=== PATIENT | female | born 1940 | race Caucasian/White ===

== ENCOUNTER 2021-03-25 17:00 | Inpatient (IN) | payer MEDICARE, BC ==
[2021-03-25] MEDS ORDERED: Sodium Chloride 0.9% 10 ML Syringe FLUSH PRN (17:12)
[2021-03-25] MEDS ORDERED: Acetaminophen 325 MG Tab PO PRN (17:12)
[2021-03-25] MEDS ORDERED: Sodium Chloride 0.9% 1,000 ML IV SCH (17:15)
[2021-03-25] MEDS ORDERED: Sodium Chloride 0.9% 1,000 ML ONE (18:13)
[2021-03-25] MEDS ORDERED: Albuterol 0.083% 2.5 MG/3 ML Neb Soln NEB PRN (18:21)
[2021-03-25] MEDS: cefTRIAXone 1 GM Vial IVPUSH SCH (19:25)
[2021-03-25] MEDS: Sodium Chloride 0.9% 1,000 ML IV SCH (19:27)
[2021-03-25] MEDS: Azithromycin 500 MG in Sodium Chloride 0.9% 250 ML IV SCH (19:34)
[2021-03-25] MEDS: guaiFENesin 600 MG Tab.ER PO SCH (20:35)
[2021-03-26] MEDS: Sodium Chloride 0.9% 1,000 ML IV SCH ×2 (04:28→14:58)
--- NOTE | 2021-03-26 08:47 | PCM.PN ---
- General Info Date of Service: 03/26/21 Subjective Update: Still somewhat weak with tachycardia sitting up in bed however overall she states she does feel better, poor sleep last night Functional Status: Reports: Tolerating Diet, Urinating. Denies: Ambulating, Incentive Spirometry - Review of Systems General: Reports: Weakness, Malaise, Chills. Denies: Fever HEENT: Reports: No Symptoms Pulmonary: Reports: Cough. Denies: Shortness of Breath, Sputum, Wheezing Cardiovascular: Denies: Chest Pain, Dyspnea on Exertion Gastrointestinal: Reports: Diarrhea Genitourinary: Reports: No Symptoms Musculoskeletal: Reports: No Symptoms Skin: Denies: Dryness Neurological: Reports: Weakness. Denies: Confusion Psychiatric: Denies: Confusion - Patient Data Vitals - Most Recent: Last Vital Signs Temp 98.1 F 03/26/21 06:39 Pulse 93 03/26/21 06:39 Resp 18 03/26/21 06:39 BP 114/60 03/26/21 06:39 Pulse Ox 93 L 03/26/21 06:39 Weight - Most Recent: 184 lb 4 oz I&O - Last 24 Hours: Intake & Output 03/25/21 03/26/21 03/26/21 22:59 06:59 14:59 Intake Total 300 360 Output Total 200 600 Balance 100 -240 Lab Results Last 24 Hours: Laboratory Results - last 24 hr 03/25/21 03/25/21 Range/Units 17:35 17:35 Lactic Acid 1.7 (0.4-2.0) mmol/L C-Reactive Protein > 11.0 H (0.0-0.9) mg/dL Med Orders - Current: Current Medications Acetaminophen (Acetaminophen 325 Mg Tab) 650 mg PO Q4H PRN PRN Reason: Pain (Mild 1-3)/fever Albuterol (Albuterol 0.083% 2.5 Mg/3 Ml Neb Soln) 2.5 mg NEB Q6HRRT PRN PRN Reason: Shortness of Breath Ceftriaxone Sodium (Ceftriaxone 1 Gm Vial) 1 gm IVPUSH Q24H [facility] Last Admin: 03/25/21 19:25 Dose: 1 gm Documented by: Guaifenesin (Guaifenesin 600 Mg Tab.Er) 600 mg PO BID [facility] Last Admin: 03/25/21 20:35 Dose: 600 mg Documented by: Sodium Chloride (Normal Saline) 1,000 mls @ 999 mls/hr IV .BOLUS [facility] Sodium Chloride (Normal Saline) 1,000 mls @ 125 mls/hr IV ASDIRECTED [facility] Last Admin: 03/26/21 04:28 Dose: 125 mls/hr Documented by: Azithromycin 500 mg/ Sodium (Chloride) 250 mls @ 250 mls/hr IV Q24H [facility] Last Admin: 03/25/21 19:34 Dose: 250 mls/hr Documented by: Sodium Chloride (Sodium Chloride 0.9% 10 Ml Syringe) 10 ml FLUSH Q8HR PRN PRN Reason: keep vein open Discontinued Medications Sodium Chloride (Normal Saline) Confirm Administered Dose 1,000 mls @ as directed .ROUTE .ST-MED ONE Stop: 03/25/21 18:14 Last Admin: 03/25/21 18:30 Dose: Not Given Documented by: - Exam Quality Assessment: No: Supplemental Oxygen General: Alert, Oriented, Cooperative, No Acute Distress Neck: Supple Lungs: Clear to Auscultation, Normal Respiratory Effort Cardiovascular: Regular Rhythm, Tachycardia GI/Abdominal Exam: Soft, Non-Tender, No Distention (Female) Exam: Deferred Back Exam: No: CVA Tenderness (L), CVA Tenderness (R) Extremities: No Pedal Edema Peripheral Pulses: 1+: Radial (R), 2+: Radial (L) Skin: Warm Neurological: No New Focal Deficit Psy/Mental Status: Alert, Normal Affect, Normal Mood - Patient Data Lab Results Last 24 hrs: Laboratory Results - last 24 hr 03/25/21 03/25/21 Range/Units 17:35 17:35 Lactic Acid 1.7 (0.4-2.0) mmol/L C-Reactive Protein > 11.0 H (0.0-0.9) mg/dL Result Diagrams: 03/26/21 08:15 03/26/21 08:30 Sepsis Event Note - Evaluation Sepsis Screening Result: Possible Sepsis Risk - Focused Exam Vital Signs: Vital Signs Temp Pulse Resp BP Pulse Ox 03/26/21 06:39 98.1 F 93 18 114/60 93 L 03/26/21 02:51 98.0 F 95 20 118/68 95 03/25/21 22:55 97.0 F 87 20 100/60 93 L - Problem List Review Problem List Initiated/Reviewed/Updated: Yes - Plan Plan:: History Summary; Ms Salmeron is a 80yr female who was admitted in INPT status with a working dx cough, weakness, SOB with suspect of of PNA, weakness, ELDA, with a chief complaint of Cough (started ~3 weeks ago), Shortness of Breath (worse the last 3 days), and Weakness. The last three days prior to admission symptoms have w orsened, patient reports she has become rather weak. She had a telephone visit with Dr Akins at [facility] in [place] and was given a z-pack on 03/10. Her symptoms did improve for a week following this. This past week has been "terrible." She has been weak and has had a hard time walking at times. She is drinking lots and lots of water per report. She has felt dizzy and lightheaded lately, today has been "bad for this." Her appetite has not been good. She has been voiding normally, no frequency or urgency of urination. The cough comes and goes. She has been taking mucinex and this has loosened up the phlegm "icky stuff." She has only been on this for about 4 day. Shortness of breath has been more with activity than at rest. No wheezing, no chest tightness. Denies chest pain and palpitations. Denies any swelling of the legs. She does not currently have an inhaler at home. The inhaler helped when she had this in the past. She states that if she had an inhaler at home she would have used this. She has been more fatigued than normal and sleeping more than normal. No known ill contacts. Has not been anywhere for 3 weeks. She used to smoke, smoked for 30 some years. Quit smoking about 4 months ago. No history of COPD or other lung problems. [facility] findings: 03/25/2021 CXR; 'underlying lung hyperinflation concerning for underlying obstructive physiology. Wedge-shaped area of consolidation on the lateral view is felt to correspond to peripheral nodular density within the frontal view. Differential includes underlying consolidation versus spiculated-type nodule. Recommend further evaluation with CT.' Notable labs WBC, 19.9 ESR NEUTROPCT 88.0 BUN 39 (H) CREAT 1.94 EGFR 25 (L) ESR 40 (H) Lactate 1.7 CRP >11 Alb 1.95 Hospital course 03/26; on admission, blood cultures/sputum culture/UA ordered, was given azithromycin along with ceftriaxone and her white count has responded to decreased to 13,000 with great improvement in her renal indices. Overall does feel better somewhat weak, cough, no fever, did not sleep well, her pressure improved. Primary Hosp problems --Suspect Pneumonia, CAP, vs nodule --ELDA, suspect prerenal, improving with IV hydration, avoid contrast/NSAIDs at this time. --Hypotension, prerenal volume deficit, improving --Environmental allergies, montelukast, PATITO PRN --Weakness/protein malnutrition --Thrombocytosis, suspect reactive --Anemia; suspect infection etiology Chronic medical conditions Hypertension, holding a HCTA and ARB History of breast CA with right mastectomy Disposition/overall plan --Patient qualifies for ongoing inpatient stay likely bacterial component/pneumonia requiring IV ABX, with monitoring of renal indices, hydration status, VS, --Will consider chest CT after improvement in her hydration status. --DC telemetry, --Pulm Toilet --Labs in am --Add DVT prophylaxis LMWH --Reduce IV to 70 mL/h, adequate by mouth intake --Rozerum at HS
[2021-03-26] MEDS: guaiFENesin 600 MG Tab.ER PO SCH ×2 (08:52→20:11)
[2021-03-26 09:12] LABS: ANION GAP 15.8 mmol/L (5-15)
[2021-03-26] MEDS ORDERED: Albuterol 8 GM Inhaler INH PRN (10:50)
[2021-03-26] MEDS: Enoxaparin 40 MG/0.4 ML Syringe SUBCUT SCH (11:29)
[2021-03-26] MEDS: cefTRIAXone 1 GM Vial IVPUSH SCH (18:03)
[2021-03-26] MEDS: Azithromycin 500 MG in Sodium Chloride 0.9% 250 ML IV SCH (18:04)
[2021-03-26] MEDS ORDERED: Montelukast 10 MG Tab PO SCH (21:00)
[2021-03-27] MEDS: Sodium Chloride 0.9% 1,000 ML IV SCH (06:37)
[2021-03-27 08:47] LABS: ANION GAP 14.4 mmol/L (5-15); CHLORIDE,CL 102 mmol/L (98-107); SODIUM,NA 135 mmol/L (136-145)
[2021-03-27] MEDS: guaiFENesin 600 MG Tab.ER PO SCH (09:40)
[2021-03-27] MEDS: Enoxaparin 40 MG/0.4 ML Syringe SUBCUT SCH ×2 (09:40→10:01)
--- NOTE | 2021-03-27 10:50 | PCM.DCSUM1 ---
<Isela-Delmi Vickers - Last Filed: 03/27/21 10:50> Discharge Summary - Hospital Course Free Text/Narrative:: Date of admission: Date of discharge: Admission diagnoses: Discharge diagnoses: Consultations: Procedures: Hospital course: Discharge and follow-up recommendations: - Discharge to - Medication changes at discharge: - Follow-up with - Pending results - Referral to Home Health Primary Care Physician: Mary Noble NP - Discharge Plan Prescriptions/Med Rec: Azithromycin 500 mg PO DAILY 3 Days #3 tablet Cefdinir 300 mg PO BID 3 Days #6 capsule Home Medications: Home Meds Albuterol Sulfate [Albuterol Sulfate HFA] 1 - 2 puff INH Q4H PRN 03/25/21 [History] Montelukast [Singulair] 10 mg PO BEDTIME 03/25/21 [History] hydroCHLOROthiazide [Hydrochlorothiazide] 25 mg PO DAILY 03/25/21 [History] lisinopriL [Lisinopril] 10 mg PO DAILY 03/25/21 [History] Azithromycin 500 mg PO DAILY 3 Days #3 tablet 03/27/21 [Rx] Cefdinir 300 mg PO BID 3 Days #6 capsule 03/27/21 [Rx] Referrals: Mary Noble, [employer] [Primary Care Provider] - (Monday in [place]. Call the clinic to make appointment [phone]. Labs 30 min prior to appointment. ) - Patient Data Vitals - Most Recent: Last Vital Signs Temp 36.6 C 03/27/21 06:01 Pulse 80 03/27/21 06:01 Resp 22 H 03/27/21 06:01 BP 115/52 L 03/27/21 06:01 Pulse Ox 92 L 03/27/21 06:01 I&O - Last 24 hours: Intake & Output 03/26/21 03/27/21 03/27/21 22:59 06:59 14:59 Intake Total 1254 646 Output Total 300 500 Balance 954 146 Lab Results - Last 24 hrs: Laboratory Results - last 24 hr 03/25/21 03/27/21 03/27/21 Range/Units 17:12 07:55 07:55 WBC 7.74 (5.00-10.00) 10^3/uL RBC 2.76 L (3.80-5.50) 10^6/uL Hgb 8.8 L (12.0-16.0) g/dL Hct 27.9 L (37.0-47.0) % MCV 101.1 H (82.0-92.0) fL MCH 31.9 H (27.0-31.0) pg MCHC 31.5 L (32.0-36.0) g/dL RDW 13.0 (11.5-14.5) % Plt Count 293 (150-400) 10^3/uL MPV 9.4 (7.4-10.4) fL Immature Gran % (Auto) 0.1 (0.0-5.0) % Neut % (Auto) 77.0 H (50.0-70.0) % Lymph % (Auto) 10.2 L (20.0-40.0) % [place] % (Auto) 9.0 H (2.0-8.0) % Eos % (Auto) 3.4 H (1.0-3.0) % Baso % (Auto) 0.3 (0.0-1.0) % Neut # (Auto) 5.96 (2.50-7.00) 10^3/uL Lymph # (Auto) 0.79 L (1.00-4.00) 10^3/uL [place] # (Auto) 0.70 (0.10-0.80) 10^3/uL Eos # (Auto) 0.26 (0.10-0.30) 10^3/uL Baso # (Auto) 0.02 (0.00-0.10) 10^3/uL Immature Gran # (Auto) 0.01 (0.00-0.50) 10^3/uL Sodium 135 L (136-145) mmol/L Potassium 3.8 (3.5-5.1) mmol/L Chloride 102 (98-107) mmol/L Carbon Dioxide 22.4 (21.0-32.0) mmol/L Anion Gap 14.4 (5-15) mmol/L BUN 17 (7-18) mg/dL Creatinine 0.85 (0.51-1.17) mg/dL Est Cr Clr Drug Dosing 51.06 mL/min Estimated GFR (MDRD) > 60 mL/min Glucose 116 (70-140) mg/dL Calcium 8.1 L (8.7-10.3) mg/dL Specimen Type Urincc Urine Color Dark yellow H (YELLOW) Urine Appearance Cloudy H (CLEAR) Urine pH 5.0 (5.0-9.0) Ur Specific [place] 1.015 (1.005-1.030) Urine Protein 30 H (NEGATIVE) mg/dL Urine Glucose (UA) Negative (NEGATIVE) mg/dL Urine Ketones Negative (NEGATIVE) mg/dL Urine Occult Blood Negative (NEGATIVE) Urine Nitrite Negative (NEGATIVE) Urine Bilirubin Negative (NEGATIVE) Urine Urobilinogen 0.2 (0.2-1.0) E.U./dL Ur Leukocyte Esterase Moderate H (NEGATIVE) Urine RBC 0-5 (0-5) /HPF Urine WBC 20-30 H (0-5) /HPF Ur Epithelial Cells Many H /LPF Amorphous Sediment Moderate H (0/HPF) /HPF Urine Bacteria Moderate H (NONE TO FEW) /HPF NATALIE Results - Last 24 hrs: Microbiology 03/25/21 18:00 Aerobic Blood Culture - Preliminary Blood - Venous NO GROWTH AFTER 1 DAY Anaerobic Blood Culture - Preliminary NO GROWTH AFTER 1 DAY 03/25/21 17:35 Aerobic Blood Culture - Preliminary Blood - Venous - Lab Draw NO GROWTH AFTER 1 DAY Anaerobic Blood Culture - Preliminary NO GROWTH AFTER 1 DAY Med Orders - Current: Current Medications Acetaminophen (Acetaminophen 325 Mg Tab) 650 mg PO Q4H PRN PRN Reason: Pain (Mild 1-3)/fever Albuterol (Albuterol 0.083% 2.5 Mg/3 Ml Neb Soln) 2.5 mg NEB Q6HRRT PRN PRN Reason: Shortness of Breath Albuterol (Albuterol 8 Gm Inhaler) 1 - 2 gm INH Q4H PRN PRN Reason: Shortness of Breath Ceftriaxone Sodium (Ceftriaxone 1 Gm Vial) 1 gm IVPUSH Q24H [facility] Last Admin: 03/26/21 18:03 Dose: 1 gm Documented by: Enoxaparin Sodium (Enoxaparin 40 Mg/0.4 Ml Syringe) 40 mg SUBCUT Q24H [facility] Last Admin: 03/27/21 10:01 Dose: Not Given Documented by: Guaifenesin (Guaifenesin 600 Mg Tab.Er) 600 mg PO BID [facility] Last Admin: 03/27/21 09:40 Dose: 600 mg Documented by: Azithromycin 500 mg/ Sodium (Chloride) 250 mls @ 250 mls/hr IV Q24H [facility] Last Admin: 03/26/21 18:04 Dose: 250 mls/hr Documented by: Sodium Chloride (Normal Saline) 1,000 mls @ 70 mls/hr IV ASDIRECTED [facility] Last Admin: 03/27/21 06:37 Dose: 70 mls/hr Documented by: Montelukast Sodium (Montelukast 10 Mg Tab) 10 mg PO BEDTIME [facility] Last Admin: 03/26/21 20:11 Dose: 10 mg Documented by: Ramelteon (Ramelteon 8 Mg Tab) 8 mg PO BEDTIME [facility] Last Admin: 03/26/21 20:11 Dose: 8 mg Documented by: Sodium Chloride (Sodium Chloride 0.9% 10 Ml Syringe) 10 ml FLUSH Q8HR PRN PRN Reason: keep vein open Discontinued Medications Sodium Chloride (Normal Saline) 1,000 mls @ 999 mls/hr IV .BOLUS [facility] Sodium Chloride (Normal Saline) Confirm Administered Dose 1,000 mls @ as directed .ROUTE .[facility]-MED ONE Stop: 03/25/21 18:14 Last Admin: 03/25/21 18:30 Dose: Not Given Documented by: Sodium Chloride (Normal Saline) 1,000 mls @ 125 mls/hr IV ASDIRECTED [facility] Last Infusion: 03/26/21 09:44 Dose: 70 mls/hr Documented by: <Maura Canales - Last Filed: 03/27/21 11:14> Discharge Summary - Hospital Course Free Text/Narrative:: Date of admission: 03/25/21 Date of discharge: 03/27/21 Admission diagnoses: ELDA, SOB, leukocytosis, possible pneumonia, possible lung nodule Discharge diagnoses: #Community acquired pneumonia: Improving. Finish 5 day course of antibiotics. Prescription for cefdinir and azithromycin for 3 more days #Possible lung nodule: Patient will have outpatient chest CT scan for further evaluation of possible nodule that was present on CXR #ELDA: Resolved #HTN: BP 115/75 today. Continue holding lisinopril and HCTZ until follow up appointment Consultations: None Procedures: None Hospital course: Ms Salmeron is a 80yr female who was admitted in INPT status with a working dx cough, weakness, SOB with suspect of of PNA, ELDA, with a chief complaint of Cough (started ~3 weeks ago), Shortness of Breath (worse the last 3 days), and Weakness. The last three days prior to admission symptoms have worsened, patient reports she has become rather weak. She had a telephone visit with Dr Akins at [facility] in [place] and was given a z-pack on 03/10. Her symptoms did improve for a week following this. This past week has been "terrible." She has been weak and has had a hard time walking at times. She is drinking lots and lots of water per report. She has felt dizzy and lightheaded lately, today has been "bad for this." Her appetite has not been good. She has been voiding normally, no frequency or urgency of urination. The cough comes and goes. She has been taking mucinex and this has loosened up the phlegm "icky stuff." She has only been on this for about 4 day. Shortness of breath has been more with activity than at rest. No wheezing, no chest tightness. Denies chest pain and palpitations. Denies any swelling of the legs. She does not currently have an inhaler at home. The inhaler helped when she had this in the past. She states that if she had an inhaler at home she would have used this. She has been more fatigued than normal and sleeping more than normal. No known ill contacts. Has not been anywhere for 3 weeks. She used to smoke, smoked for 30 some years. Quit smoking about 4 months ago. No history of COPD or other lung problems. Outpatient Clinical findings: 03/25/2021 CXR; 'underlying lung hyperinflation concerning for underlying obstructive physiology. Wedge-shaped area of consolidation on the lateral view is felt to correspond to peripheral nodular density within the frontal view. Differential includes underlying consolidation versus spiculated-type nodule. Recommend further evaluation with CT.' Notable labs WBC, 19.9 NEUTROPCT 88.0 BUN 39 (H) CREAT 1.94 EGFR 25 (L) ESR 40 (H) Lactate 1.7 CRP >11 Alb 1.95 Hospital course 03/26; on admission, blood cultures/sputum culture/UA ordered, was given azithromycin along with ceftriaxone and her white count has responded to decreased to 13,000 with great improvement in her renal indices. Overall does feel better somewhat weak, cough, no fever, did not sleep well, her pressure improved. 03/27: Patient alert in bed. She reports she is feeling much better than when she was admitted. Patient reports productive cough and is able to bring up sputum. Discharge and follow-up recommendations: - Discharge to home - Medication changes at discharge: Start azithromycin and cefdinir. Hold HCTZ and lisinopril until follow up appointment. May resume HCTZ and lisinopril prior to follow up if BP is >130/80 at home. - Follow-up with Mary Knox CNP on Monday04/02/21 at the [facility]. Patient is planning on continuing with [place] for primary care. Patient will have CBC, BMP and chest CT scan done outpatient. - Pending results: Blood cultures final report pending. - Discharge Data Discharge Date: 03/27/21 - Referral to Home Health Primary Care Physician: Mary Noble NP - Patient Instructions Diet: Regular Diet as Tolerated Activity: As Tolerated Showering/Bathing: May Shower Notify Provider of: Fever Other/Special Instructions: Shortness of breath, worsening symptoms - Discharge Plan *PRESCRIPTION DRUG MONITORING PROGRAM REVIEWED*: Not Applicable *COPY OF PRESCRIPTION DRUG MONITORING REPORT IN PATIENT CASS: Not Applicable - Discharge Summary/Plan Comment DC Time >30 min.: Yes Total # of Minutes for Discharge Time: 40 - General Info Subjective Update: Patient reports she is feeling much better than admission. Some shortness of breath continues with exertion. Patient is feeling like she is able to go home. - Patient Data Vitals - Most Recent: Last Vital Signs Temp 97.9 F 03/27/21 06:01 Pulse 80 03/27/21 06:01 Resp 22 H 03/27/21 06:01 BP 115/52 L 03/27/21 06:01 Pulse Ox 92 L 03/27/21 06:01 Weight - Most Recent: 188 lb 5 oz I&O - Last 24 hours: Intake & Output 03/26/21 03/27/21 03/27/21 22:59 06:59 14:59 Intake Total 1254 646 Output Total 300 500 Balance 954 146 Lab Results - Last 24 hrs: Laboratory Results - last 24 hr 03/25/21 03/27/21 03/27/21 Range/Units 17:12 07:55 07:55 WBC 7.74 (5.00-10.00) 10^3/uL RBC 2.76 L (3.80-5.50) 10^6/uL Hgb 8.8 L (12.0-16.0) g/dL Hct 27.9 L (37.0-47.0) % MCV 101.1 H (82.0-92.0) fL MCH 31.9 H (27.0-31.0) pg MCHC 31.5 L (32.0-36.0) g/dL RDW 13.0 (11.5-14.5) % Plt Count 293 (150-400) 10^3/uL MPV 9.4 (7.4-10.4) fL Immature Gran % (Auto) 0.1 (0.0-5.0) % Neut % (Auto) 77.0 H (50.0-70.0) % Lymph % (Auto) 10.2 L (20.0-40.0) % [place] % (Auto) 9.0 H (2.0-8.0) % Eos % (Auto) 3.4 H (1.0-3.0) % Baso % (Auto) 0.3 (0.0-1.0) % Neut # (Auto) 5.96 (2.50-7.00) 10^3/uL Lymph # (Auto) 0.79 L (1.00-4.00) 10^3/uL [place] # (Auto) 0.70 (0.10-0.80) 10^3/uL Eos # (Auto) 0.26 (0.10-0.30) 10^3/uL Baso # (Auto) 0.02 (0.00-0.10) 10^3/uL Immature Gran # (Auto) 0.01 (0.00-0.50) 10^3/uL Sodium 135 L (136-145) mmol/L Potassium 3.8 (3.5-5.1) mmol/L Chloride 102 (98-107) mmol/L Carbon Dioxide 22.4 (21.0-32.0) mmol/L Anion Gap 14.4 (5-15) mmol/L BUN 17 (7-18) mg/dL Creatinine 0.85 (0.51-1.17) mg/dL Est Cr Clr Drug Dosing 51.06 mL/min Estimated GFR (MDRD) > 60 mL/min Glucose 116 (70-140) mg/dL Calcium 8.1 L (8.7-10.3) mg/dL Specimen Type Urincc Urine Color Dark yellow H (YELLOW) Urine Appearance Cloudy H (CLEAR) Urine pH 5.0 (5.0-9.0) Ur Specific [place] 1.015 (1.005-1.030) Urine Protein 30 H (NEGATIVE) mg/dL Urine Glucose (UA) Negative (NEGATIVE) mg/dL Urine Ketones Negative (NEGATIVE) mg/dL Urine Occult Blood Negative (NEGATIVE) Urine Nitrite Negative (NEGATIVE) Urine Bilirubin Negative (NEGATIVE) Urine Urobilinogen 0.2 (0.2-1.0) E.U./dL Ur Leukocyte Esterase Moderate H (NEGATIVE) Urine RBC 0-5 (0-5) /HPF Urine WBC 20-30 H (0-5) /HPF Ur Epithelial Cells Many H /LPF Amorphous Sediment Moderate H (0/HPF) /HPF Urine Bacteria Moderate H (NONE TO FEW) /HPF NATALIE Results - Last 24 hrs: Microbiology 03/25/21 18:00 Aerobic Blood Culture - Preliminary Blood - Venous NO GROWTH AFTER 1 DAY Anaerobic Blood Culture - Preliminary NO GROWTH AFTER 1 DAY 03/25/21 17:35 Aerobic Blood Culture - Preliminary Blood - Venous - Lab Draw NO GROWTH AFTER 1 DAY Anaerobic Blood Culture - Preliminary NO GROWTH AFTER 1 DAY Med Orders - Current: Current Medications Acetaminophen (Acetaminophen 325 Mg Tab) 650 mg PO Q4H PRN PRN Reason: Pain (Mild 1-3)/fever Albuterol (Albuterol 0.083% 2.5 Mg/3 Ml Neb Soln) 2.5 mg NEB Q6HRRT PRN PRN Reason: Shortness of Breath Albuterol (Albuterol 8 Gm Inhaler) 1 - 2 gm INH Q4H PRN PRN Reason: Shortness of Breath Ceftriaxone Sodium (Ceftriaxone 1 Gm Vial) 1 gm IVPUSH Q24H [facility] Last Admin: 03/26/21 18:03 Dose: 1 gm Documented by: Enoxaparin Sodium (Enoxaparin 40 Mg/0.4 Ml Syringe) 40 mg SUBCUT Q24H [facility] Last Admin: 03/27/21 10:01 Dose: Not Given Documented by: Guaifenesin (Guaifenesin 600 Mg Tab.Er) 600 mg PO BID [facility] Last Admin: 03/27/21 09:40 Dose: 600 mg Documented by: Azithromycin 500 mg/ Sodium (Chloride) 250 mls @ 250 mls/hr IV Q24H [facility] Last Admin: 03/26/21 18:04 Dose: 250 mls/hr Documented by: Sodium Chloride (Normal Saline) 1,000 mls @ 70 mls/hr IV ASDIRECTED [facility] Last Admin: 03/27/21 06:37 Dose: 70 mls/hr Documented by: Montelukast Sodium (Montelukast 10 Mg Tab) 10 mg PO BEDTIME [facility] Last Admin: 03/26/21 20:11 Dose: 10 mg Documented by: Ramelteon (Ramelteon 8 Mg Tab) 8 mg PO BEDTIME [facility] Last Admin: 03/26/21 20:11 Dose: 8 mg Documented by: Sodium Chloride (Sodium Chloride 0.9% 10 Ml Syringe) 10 ml FLUSH Q8HR PRN PRN Reason: keep vein open Discontinued Medications Sodium Chloride (Normal Saline) 1,000 mls @ 999 mls/hr IV .BOLUS [facility] Sodium Chloride (Normal Saline) Confirm Administered Dose 1,000 mls @ as directed .ROUTE .[facility]-MED ONE Stop: 03/25/21 18:14 Last Admin: 03/25/21 18:30 Dose: Not Given Documented by: Sodium Chloride (Normal Saline) 1,000 mls @ 125 mls/hr IV ASDIRECTED [facility] Last Infusion: 03/26/21 09:44 Dose: 70 mls/hr Documented by: - Exam General: Reports: Alert Lungs: Reports: Clear to Auscultation Cardiovascular: Reports: Regular Rate, Regular Rhythm, No Murmurs Extremities: Normal Inspection Skin: Reports: Warm Neurological: Reports: No New Focal Deficit, Normal Speech Psy/Mental Status: Reports: Alert, Normal Affect, Normal Mood
== END 2021-03-27 11:22 | disposition home or self-care (01) | DRG 682 ==
LOC: UNDOADMIN 17:00 → KA.MS 17:00
PROVIDERS: ADMIT Nurse Practitioner Family; ATTEND Nurse Practitioner Family
DX: N17.9 Acute kidney failure, unspecified (principal); J18.9 Pneumonia, unspecified organism; I10 Essential (primary) hypertension; Z87.891 Personal history of nicotine dependence; Z79.899 Other long term (current) drug therapy; R91.1 Solitary pulmonary nodule; I95.9 Hypotension, unspecified; D64.9 Anemia, unspecified; D47.3 Essential (hemorrhagic) thrombocythemia; Z85.3 Personal history of malignant neoplasm of breast; Z90.11 Acquired absence of right breast and nipple
CPT/HCPCS: 36415; 80048; 80053; 81001; 83605; 83735; 85025; 86140; 87040; 87070; 87205; A9270-GY; J0456; J0696; J1650; J7030; J7050

== ENCOUNTER 2024-08-14 15:00 | Observation (INO) | payer MEDICARE, BC ==
[2024-08-14] MEDS ORDERED: Sodium Chloride 0.9% 10 ML Syringe FLUSH PRN (15:10)
[2024-08-14 15:30] LABS: BASOPHILS ABSOLUTE AUTO 0.03 10^3/uL (0.00-0.10); BASOPHILS PERCENT AUTO 0.4 % (0.0-1.0); EOSINOPHILS ABSOLUTE AUTO 0.04 10^3/uL (0.10-0.30); EOSINOPHILS PERCENT AUTO 0.5 % (1.0-3.0); HEMATOCRIT 44.9 % (37.0-47.0); HEMOGLOBIN 13.8 g/dL (12.0-16.0); IMMATURE GRAN ABSOLUTE AUTO 0.01 10^3/uL (0.00-0.04); IMMATURE GRAN PERCENT AUTO 0.1 % (0.0-0.4); LYMPHOCYTES ABSOLUTE AUTO 0.85 10^3/uL (1.00-4.00); LYMPHOCYTES PERCENT AUTO 11.6 % (20.0-40.0); MEAN CORPUSCULAR HEMOGLOBIN 30.6 pg (27.0-31.0); MEAN CORPUSCULAR HGB CONC 30.7 g/dL (32.0-36.0); MEAN CORPUSCULAR VOLUME 99.6 fL (82.0-92.0); MEAN PLATELET VOLUME 9.6 fL (7.4-10.4); MONOCYTES ABSOLUTE AUTO 0.74 10^3/uL (0.10-0.80); MONOCYTES PERCENT AUTO 10.1 % (2.0-8.0); NEUTROPHILS ABSOLUTE AUTO 5.68 10^3/uL (2.50-7.00); NEUTROPHILS PERCENT AUTO 77.3 % (50.0-70.0); PLATELET COUNT,PLT 243 10^3/uL (150-400); RED BLOOD CELL COUNT 4.51 10^6/uL (3.80-5.50); RED CELL DISTRIBUTION WIDTH 13.6 % (11.5-14.5); WHITE BLOOD CELL COUNT,WBC 7.35 10^3/uL (5.00-10.00)
[2024-08-14 15:38] LABS: HCO3 ARTERIAL,POC 36.6 mmol/L (21-28); PCO2 ARTERIAL,POC 62 mmHg (35-48); PH ARTERIAL,POC 7.38 pH (7.35-7.45); PO2 ARTERIAL,POC 81 mmHg (83-108)
[2024-08-14 15:57] LABS: CORONAVIRUS COVID-19 NAA NEGATIVE (NEGATIVE); INFLUENZA A NAA NEGATIVE (NEGATIVE); INFLUENZA B NAA NEGATIVE (NEGATIVE)
[2024-08-14] MEDS: Furosemide 20 MG Tab PO ONE (15:57)
[2024-08-14 15:59] LABS: ALBUMIN 3.01 g/dL (3.40-5.00); ANION GAP 10.9 mmol/L (5-15); BILIRUBIN TOTAL 0.4 mg/dL (0.2-1.0); CALCIUM 8.9 mg/dL (8.7-10.3); CARBON DIOXIDE,CO2 36.2 mmol/L (21.0-32.0); CREATININE 1.15 mg/dL (0.51-1.17); EST CRCL DRUG DOSING (CG) 33.94 mL/min; POTASSIUM,K 4.1 mmol/L (3.5-5.1); PROTEIN TOTAL,TP 6.6 g/dL (6.4-8.2)
[2024-08-14] MEDS: Sodium Chloride 0.9% 50 ML IV SCH (16:45)
[2024-08-14] MEDS: Iopamidol 755 Mg/ML 100 ML Bottle IV ONE (16:45)
[2024-08-14] MEDS: Nicotine 21 MG/24 Hr Patch TRDERM ONE (19:07)
[2024-08-14] MEDS ORDERED: Acetaminophen 325 MG Tab PO PRN (22:54)
[2024-08-14] MEDS ORDERED: Ondansetron 4 MG Tab.DIS PO PRN (22:54)
[2024-08-14] MEDS: methylPREDNISolone Sodium Succinate 40 MG/1 ML SDV IVPUSH ONE (23:15)
[2024-08-14] MEDS: Furosemide 40 MG/4 ML VIAL IVPUSH ONE (23:47)
[2024-08-15] MEDS: Albuterol/Ipratropium 3.0-0.5 MG/3 ML Neb Soln NEB SCH (01:09)
[2024-08-15 06:40] LABS: HCO3 ARTERIAL,POC 41.2 mmol/L (21-28); O2 SATURATION ARTERIAL,POC 89.9 % (94-98); PCO2 ARTERIAL,POC 81 mmHg (35-48); PH ARTERIAL,POC 7.32 pH (7.35-7.45); PO2 ARTERIAL,POC 67 mmHg (83-108)
[2024-08-15 07:32] LABS: BASOPHILS ABSOLUTE AUTO 0.02 10^3/uL (0.00-0.10); BASOPHILS PERCENT AUTO 0.3 % (0.0-1.0); EOSINOPHILS ABSOLUTE AUTO 0.01 10^3/uL (0.10-0.30); EOSINOPHILS PERCENT AUTO 0.1 % (1.0-3.0); HEMATOCRIT 52.1 % (37.0-47.0); IMMATURE GRAN ABSOLUTE AUTO 0.04 10^3/uL (0.00-0.04); IMMATURE GRAN PERCENT AUTO 0.5 % (0.0-0.4); LYMPHOCYTES PERCENT AUTO 2.7 % (20.0-40.0); MEAN CORPUSCULAR HEMOGLOBIN 29.8 pg (27.0-31.0); MEAN CORPUSCULAR HGB CONC 28.8 g/dL (32.0-36.0); MEAN CORPUSCULAR VOLUME 103.6 fL (82.0-92.0); MEAN PLATELET VOLUME 10.7 fL (7.4-10.4); MONOCYTES ABSOLUTE AUTO 0.04 10^3/uL (0.10-0.80); MONOCYTES PERCENT AUTO 0.5 % (2.0-8.0); NEUTROPHILS PERCENT AUTO 95.9 % (50.0-70.0); RED BLOOD CELL COUNT 5.03 10^6/uL (3.80-5.50); RED CELL DISTRIBUTION WIDTH 13.9 % (11.5-14.5); WHITE BLOOD CELL COUNT,WBC 7.41 10^3/uL (5.00-10.00)
[2024-08-15 07:49] LABS: ANION GAP 9.9 mmol/L (5-15); CALCIUM 9.2 mg/dL (8.7-10.3); CARBON DIOXIDE,CO2 40.6 mmol/L (21.0-32.0); CREATININE 1.16 mg/dL (0.51-1.17); EST CRCL DRUG DOSING (CG) 33.65 mL/min
[2024-08-15 07:51] LABS: POTASSIUM,K 5.5 mmol/L (3.5-5.1)
[2024-08-15 08:01] LABS: PLATELET COUNT,PLT 150 10^3/uL (150-400)
[2024-08-15] MEDS: Enoxaparin 30 MG/0.3 ML Syringe SUBCUT SCH (08:21)
[2024-08-15] MEDS: Tiotropium Bromide 4 GM Inhalation Spray (2.5mcg/1 dose; 10 doses) INH SCH (08:21)
[2024-08-15] MEDS: Furosemide 20 MG Tab PO SCH (08:22)
[2024-08-15] MEDS: predniSONE 20 MG Tab PO SCH (08:22)
== END 2024-08-15 16:07 | disposition home or self-care (01) ==
LOC: KA.ED 15:00 → KA.MS 18:34
PROVIDERS: ADMIT Hospitalist; ATTEND Hospitalist
DX: J96.01 Acute respiratory failure with hypoxia (principal); J43.1 Panlobular emphysema; E87.4 Mixed disorder of acid-base balance; I12.9 Hypertensive chronic kidney disease with stage 1 through stage 4 chronic kidney disease, or unspecified chronic kidney disease; N18.31 Chronic kidney disease, stage 3a; E78.00 Pure hypercholesterolemia, unspecified; F17.210 Nicotine dependence, cigarettes, uncomplicated; Z79.899 Other long term (current) drug therapy; Z88.0 Allergy status to penicillin; Z91.012 Allergy to eggs
CPT/HCPCS: 0240U; 36415; 36600; 70450; 71045; 71275; 80048; 80053; 82803; 83605; 83880; 84132; 84484; 85025; 85379; 93010; 94640; 96372; 96374; 96375; 99284; 99285; A9270-GY; G0378; J1650; J1940; J2919; J3490; J7512; J7620-GY; Q3014; Q9967

== ENCOUNTER 2024-09-02 10:03 | Inpatient (IN) | payer MEDICARE, BC ==
[2024-09-02 10:30] LABS: BASOPHILS ABSOLUTE AUTO 0.05 10^3/uL (0.00-0.10); BASOPHILS PERCENT AUTO 0.5 % (0.0-1.0); EOSINOPHILS PERCENT AUTO 2.9 % (1.0-3.0); HEMATOCRIT 48.3 % (37.0-47.0); HEMOGLOBIN 14.1 g/dL (12.0-16.0); IMMATURE GRAN ABSOLUTE AUTO 0.05 10^3/uL (0.00-0.04); IMMATURE GRAN PERCENT AUTO 0.5 % (0.0-0.4); LYMPHOCYTES ABSOLUTE AUTO 0.52 10^3/uL (1.00-4.00); MEAN CORPUSCULAR HEMOGLOBIN 29.3 pg (27.0-31.0); MEAN CORPUSCULAR HGB CONC 29.2 g/dL (32.0-36.0); MEAN CORPUSCULAR VOLUME 100.2 fL (82.0-92.0); MEAN PLATELET VOLUME 9.3 fL (7.4-10.4); MONOCYTES ABSOLUTE AUTO 0.54 10^3/uL (0.10-0.80); MONOCYTES PERCENT AUTO 5.1 % (2.0-8.0); NEUTROPHILS ABSOLUTE AUTO 9.03 10^3/uL (2.50-7.00); PLATELET COUNT,PLT 281 10^3/uL (150-400); RED BLOOD CELL COUNT 4.82 10^6/uL (3.80-5.50); RED CELL DISTRIBUTION WIDTH 14.2 % (11.5-14.5); WHITE BLOOD CELL COUNT,WBC 10.49 10^3/uL (5.00-10.00)
[2024-09-02] MEDS: Sodium Chloride 0.9% 1,000 ML IV SCH (10:34)
[2024-09-02] MEDS: methylPREDNISolone Sodium Succinate 125 MG/2 ML SDV IVPUSH ONE (10:34)
[2024-09-02 10:45] LABS: ALANINE AMINOTRANSFERASE,ALT 18 U/L (14-63); ALBUMIN 2.76 g/dL (3.40-5.00); ALKALINE PHOSPHATASE 85 U/L (46-116); ANION GAP 10.5 mmol/L (5-15); ASPARTATE AMNIOTRANSFERASE,AST 16 U/L (15-37); BILIRUBIN TOTAL 0.4 mg/dL (0.2-1.0); BLOOD UREA NITROGEN,BUN 27 mg/dL (7-18); C-REACTIVE PROTEIN 8.73 mg/dL (0.00-0.50); CALCIUM 9.7 mg/dL (8.7-10.3); CARBON DIOXIDE,CO2 35.7 mmol/L (21.0-32.0); CHLORIDE,CL 101 mmol/L (98-107); CREATININE 1.13 mg/dL (0.51-1.17); GLUCOSE RANDOM 140 mg/dL (70-140); POTASSIUM,K 5.2 mmol/L (3.5-5.1); PROTEIN TOTAL,TP 7.5 g/dL (6.4-8.2); SODIUM,NA 142 mmol/L (136-145)
[2024-09-02 10:49] LABS: ESTIMATED GFR 49 mL/min (>=60)
[2024-09-02] MEDS ORDERED: Ondansetron 4 MG/2 ML SDV IV PRN (13:13)
[2024-09-02] MEDS ORDERED: Polyethylene Glycol 3350 Powder 17 GM Packet PO PRN (13:30)
[2024-09-02] MEDS ORDERED: Sennosides/Docusate Sodium 50-8.6 MG Tab PO PRN (13:30)
[2024-09-02] MEDS ORDERED: Sodium Chloride 0.9% 100 ML IV SCH (14:00)
[2024-09-02] MEDS: Furosemide 40 MG/4 ML VIAL IVPUSH ONE (14:11)
[2024-09-02] MEDS: Levofloxacin/Dextrose 5%-Water 500 MG in Premix Bag 1 BAG IV SCH (14:12)
[2024-09-02] MEDS: Albuterol/Ipratropium 3.0-0.5 MG/3 ML Neb Soln NEB SCH (16:59)
[2024-09-02] MEDS: Montelukast 10 MG Tab PO SCH (20:03)
[2024-09-03] MEDS: Melatonin 3 MG Tab PO PRN (00:03)
[2024-09-03] MEDS: guaiFENesin/Dextromethorphan 100-10 MG/5 ML Soln 5 ML Cup PO PRN (00:03)
[2024-09-03 07:32] LABS: HEMATOCRIT 45.9 % (37.0-47.0); HEMOGLOBIN 13.5 g/dL (12.0-16.0); MEAN CORPUSCULAR HEMOGLOBIN 29.5 pg (27.0-31.0); MEAN CORPUSCULAR HGB CONC 29.4 g/dL (32.0-36.0); MEAN CORPUSCULAR VOLUME 100.4 fL (82.0-92.0); MEAN PLATELET VOLUME 9.3 fL (7.4-10.4); PLATELET COUNT,PLT 214 10^3/uL (150-400); RED BLOOD CELL COUNT 4.57 10^6/uL (3.80-5.50); RED CELL DISTRIBUTION WIDTH 14.1 % (11.5-14.5); WHITE BLOOD CELL COUNT,WBC 6.71 10^3/uL (5.00-10.00)
[2024-09-03 07:54] LABS: ALBUMIN 2.57 g/dL (3.40-5.00); ANION GAP 4.7 mmol/L (5-15); BILIRUBIN TOTAL 0.2 mg/dL (0.2-1.0); CALCIUM 9.9 mg/dL (8.7-10.3); CARBON DIOXIDE,CO2 40.5 mmol/L (21.0-32.0); CREATININE 1.07 mg/dL (0.51-1.17); EST CRCL DRUG DOSING (CG) 36.48 mL/min; POTASSIUM,K 5.2 mmol/L (3.5-5.1); PROTEIN TOTAL,TP 7.1 g/dL (6.4-8.2)
[2024-09-03] MEDS: Enoxaparin 40 MG/0.4 ML Syringe SUBCUT SCH (08:16)
[2024-09-03] MEDS: methylPREDNISolone Sodium Succinate 40 MG/1 ML SDV IVPUSH SCH ×3 (08:16→16:58)
[2024-09-03] MEDS: Furosemide 20 MG Tab PO SCH (08:16)
[2024-09-03] MEDS: Tiotropium Bromide 4 GM Inhalation Spray (2.5mcg/1 dose; 10 doses) INH SCH (08:19)
[2024-09-03] MEDS ORDERED: diphenhydrAMINE 25 MG/10 ML Cup PO PRN (09:44)
[2024-09-03] MEDS: Furosemide 40 MG/4 ML VIAL IVPUSH ONE (10:43)
[2024-09-03] MEDS ORDERED: diphenhydrAMINE 25 MG Cap PO PRN (17:20)
[2024-09-03] MEDS: Acetaminophen 325 MG Tab PO PRN (20:44)
[2024-09-04 07:19] LABS: HEMATOCRIT 43.8 % (37.0-47.0); HEMOGLOBIN 12.9 g/dL (12.0-16.0); MEAN CORPUSCULAR HEMOGLOBIN 29.4 pg (27.0-31.0); MEAN CORPUSCULAR HGB CONC 29.5 g/dL (32.0-36.0); MEAN CORPUSCULAR VOLUME 99.8 fL (82.0-92.0); PLATELET COUNT,PLT 215 10^3/uL (150-400); RED BLOOD CELL COUNT 4.39 10^6/uL (3.80-5.50); RED CELL DISTRIBUTION WIDTH 14.1 % (11.5-14.5); WHITE BLOOD CELL COUNT,WBC 7.02 10^3/uL (5.00-10.00)
[2024-09-04 08:31] LABS: ALBUMIN 2.53 g/dL (3.40-5.00); ANION GAP 6.9 mmol/L (5-15); BILIRUBIN TOTAL 0.1 mg/dL (0.2-1.0); CARBON DIOXIDE,CO2 40.2 mmol/L (21.0-32.0); CREATININE 1.05 mg/dL (0.51-1.17); EST CRCL DRUG DOSING (CG) 37.17 mL/min; POTASSIUM,K 5.1 mmol/L (3.5-5.1); PROTEIN TOTAL,TP 6.9 g/dL (6.4-8.2)
[2024-09-04] MEDS: Levofloxacin 500 MG Tab PO SCH (11:41)
[2024-09-04] MEDS: Sennosides/Docusate Sodium 50-8.6 MG Tab PO SCH (11:46)
[2024-09-04] MEDS: Polyethylene Glycol 3350 Powder 17 GM Packet PO SCH (11:47)
[2024-09-04] MEDS: predniSONE 20 MG Tab PO SCH (11:54)
[2024-09-04] MEDS: Sodium Chloride 0.65% Nasal Spray 45 ML Bottle NAS SCH (11:55)
[2024-09-04] MEDS: Sodium Chloride 0.65% Nasal Spray 45 ML Bottle ONE (12:45)
[2024-09-05 07:40] LABS: HEMATOCRIT 43.3 % (37.0-47.0); HEMOGLOBIN 12.7 g/dL (12.0-16.0); MEAN CORPUSCULAR HEMOGLOBIN 29.5 pg (27.0-31.0); MEAN CORPUSCULAR HGB CONC 29.3 g/dL (32.0-36.0); MEAN CORPUSCULAR VOLUME 100.5 fL (82.0-92.0); MEAN PLATELET VOLUME 9.3 fL (7.4-10.4); PLATELET COUNT,PLT 230 10^3/uL (150-400); RED BLOOD CELL COUNT 4.31 10^6/uL (3.80-5.50); RED CELL DISTRIBUTION WIDTH 14.4 % (11.5-14.5); WHITE BLOOD CELL COUNT,WBC 7.42 10^3/uL (5.00-10.00)
[2024-09-05 07:57] LABS: ALBUMIN 2.54 g/dL (3.40-5.00); ANION GAP 6.7 mmol/L (5-15); BILIRUBIN TOTAL 0.2 mg/dL (0.2-1.0); CALCIUM 9.9 mg/dL (8.7-10.3); CARBON DIOXIDE,CO2 41.9 mmol/L (21.0-32.0); CREATININE 1.21 mg/dL (0.51-1.17); EST CRCL DRUG DOSING (CG) 32.25 mL/min; POTASSIUM,K 4.6 mmol/L (3.5-5.1); PROTEIN TOTAL,TP 6.6 g/dL (6.4-8.2)
[2024-09-05] MEDS: Furosemide 20 MG Tab PO SCH (08:15)
[2024-09-05 09:44] LABS: HCO3 ARTERIAL,POC 37.9 mmol/L (21-28); O2 SATURATION ARTERIAL,POC 87.7 % (94-98); PCO2 ARTERIAL,POC 64 mmHg (35-48); PH ARTERIAL,POC 7.38 pH (7.35-7.45); PO2 ARTERIAL,POC 58 mmHg (83-108)
[2024-09-05] MEDS: Levofloxacin 500 MG Tab PO SCH (10:34)
[2024-09-05] MEDS: Albuterol/Ipratropium 3.0-0.5 MG/3 ML Neb Soln NEB SCH (13:15)
[2024-09-05 23:03] LABS: BORDETELLA PARAPERT IS1001 Not Detected (Not Detected)
[2024-09-06 08:05] LABS: EOSINOPHILS ABSOLUTE AUTO 0.12 10^3/uL (0.10-0.30); EOSINOPHILS PERCENT AUTO 1.6 % (1.0-3.0); HEMATOCRIT 47.4 % (37.0-47.0); HEMOGLOBIN 13.7 g/dL (12.0-16.0); LYMPHOCYTES ABSOLUTE AUTO 0.46 10^3/uL (1.00-4.00); LYMPHOCYTES PERCENT AUTO 6.3 % (20.0-40.0); MEAN CORPUSCULAR HGB CONC 28.9 g/dL (32.0-36.0); MEAN CORPUSCULAR VOLUME 100.4 fL (82.0-92.0); MEAN PLATELET VOLUME 8.7 fL (7.4-10.4); MONOCYTES ABSOLUTE AUTO 0.59 10^3/uL (0.10-0.80); NEUTROPHILS ABSOLUTE AUTO 6.18 10^3/uL (2.50-7.00); NEUTROPHILS PERCENT AUTO 84.1 % (50.0-70.0); PLATELET COUNT,PLT 207 10^3/uL (150-400); RED BLOOD CELL COUNT 4.72 10^6/uL (3.80-5.50); RED CELL DISTRIBUTION WIDTH 14.5 % (11.5-14.5); WHITE BLOOD CELL COUNT,WBC 7.35 10^3/uL (5.00-10.00)
[2024-09-06 08:19] LABS: ANION GAP 5.1 mmol/L (5-15); CALCIUM 10.1 mg/dL (8.7-10.3); CARBON DIOXIDE,CO2 43.3 mmol/L (21.0-32.0); CREATININE 1.15 mg/dL (0.51-1.17); EST CRCL DRUG DOSING (CG) 33.94 mL/min; POTASSIUM,K 4.4 mmol/L (3.5-5.1)
[2024-09-06] MEDS: Albuterol/Ipratropium 3.0-0.5 MG/3 ML Neb Soln NEB PRN (15:00)
[2024-09-06] MEDS: Budesonide 0.5 MG/2 ML Neb Susp NEB SCH (21:01)
[2024-09-07 09:11] LABS: EOSINOPHILS ABSOLUTE AUTO 0.21 10^3/uL (0.10-0.30); EOSINOPHILS PERCENT AUTO 3.3 % (1.0-3.0); HEMATOCRIT 47.2 % (37.0-47.0); HEMOGLOBIN 13.6 g/dL (12.0-16.0); IMMATURE GRAN ABSOLUTE AUTO 0.01 10^3/uL (0.00-0.04); IMMATURE GRAN PERCENT AUTO 0.2 % (0.0-0.4); LYMPHOCYTES ABSOLUTE AUTO 0.31 10^3/uL (1.00-4.00); LYMPHOCYTES PERCENT AUTO 4.9 % (20.0-40.0); MEAN CORPUSCULAR HEMOGLOBIN 29.3 pg (27.0-31.0); MEAN CORPUSCULAR HGB CONC 28.8 g/dL (32.0-36.0); MEAN CORPUSCULAR VOLUME 101.7 fL (82.0-92.0); MONOCYTES ABSOLUTE AUTO 0.43 10^3/uL (0.10-0.80); MONOCYTES PERCENT AUTO 6.8 % (2.0-8.0); NEUTROPHILS ABSOLUTE AUTO 5.32 10^3/uL (2.50-7.00); NEUTROPHILS PERCENT AUTO 84.8 % (50.0-70.0); PLATELET COUNT,PLT 210 10^3/uL (150-400); RED BLOOD CELL COUNT 4.64 10^6/uL (3.80-5.50); RED CELL DISTRIBUTION WIDTH 14.5 % (11.5-14.5); WHITE BLOOD CELL COUNT,WBC 6.28 10^3/uL (5.00-10.00)
[2024-09-07 09:26] LABS: ANION GAP 5.6 mmol/L (5-15); CALCIUM 9.8 mg/dL (8.7-10.3); CARBON DIOXIDE,CO2 43.5 mmol/L (21.0-32.0); CREATININE 1.13 mg/dL (0.51-1.17); EST CRCL DRUG DOSING (CG) 34.54 mL/min; POTASSIUM,K 4.1 mmol/L (3.5-5.1)
[2024-09-07] MEDS: Albuterol/Ipratropium 3.0-0.5 MG/3 ML Neb Soln NEB SCH (14:30)
[2024-09-08] MEDS: Sodium Chloride 0.9% Inhalation Soln 3 ML Neb NEB SCH (14:30)
[2024-09-08] MEDS: Acetylcysteine 20% 200 MG/ML 30 ML Nebulizer Soln SDV NEB SCH (14:30)
[2024-09-08] MEDS: Tiotropium Bromide 4 GM Inhalation Spray (2.5mcg/1 dose; 10 doses) INH SCH (16:03)
[2024-09-08 16:04] LABS: EOSINOPHILS ABSOLUTE AUTO 0.01 10^3/uL (0.10-0.30); EOSINOPHILS PERCENT AUTO 0.1 % (1.0-3.0); HEMATOCRIT 45.5 % (37.0-47.0); HEMOGLOBIN 13.5 g/dL (12.0-16.0); IMMATURE GRAN ABSOLUTE AUTO 0.01 10^3/uL (0.00-0.04); IMMATURE GRAN PERCENT AUTO 0.1 % (0.0-0.4); LYMPHOCYTES ABSOLUTE AUTO 0.15 10^3/uL (1.00-4.00); LYMPHOCYTES PERCENT AUTO 2.1 % (20.0-40.0); MEAN CORPUSCULAR HEMOGLOBIN 29.4 pg (27.0-31.0); MEAN CORPUSCULAR HGB CONC 29.7 g/dL (32.0-36.0); MEAN CORPUSCULAR VOLUME 99.1 fL (82.0-92.0); MEAN PLATELET VOLUME 9.1 fL (7.4-10.4); MONOCYTES ABSOLUTE AUTO 0.09 10^3/uL (0.10-0.80); MONOCYTES PERCENT AUTO 1.2 % (2.0-8.0); NEUTROPHILS ABSOLUTE AUTO 7.02 10^3/uL (2.50-7.00); NEUTROPHILS PERCENT AUTO 96.5 % (50.0-70.0); PLATELET COUNT,PLT 209 10^3/uL (150-400); RED BLOOD CELL COUNT 4.59 10^6/uL (3.80-5.50); RED CELL DISTRIBUTION WIDTH 14.6 % (11.5-14.5); WHITE BLOOD CELL COUNT,WBC 7.28 10^3/uL (5.00-10.00)
[2024-09-08 16:18] LABS: ALBUMIN 2.8 g/dL (3.40-5.00); BILIRUBIN TOTAL 0.2 mg/dL (0.2-1.0); CALCIUM 9.3 mg/dL (8.7-10.3); CREATININE 1.07 mg/dL (0.51-1.17); EST CRCL DRUG DOSING (CG) 36.48 mL/min; PROTEIN TOTAL,TP 6.5 g/dL (6.4-8.2)
[2024-09-08] MEDS: Azithromycin 250 MG Tab PO SCH (17:37)
[2024-09-08] MEDS: Enoxaparin 100 MG/1 ML Syringe SUBCUT SCH (19:34)
[2024-09-08] MEDS ORDERED: Formoterol/Mometasone 200-5 MCG 8.8 GM Inhaler INH SCH (20:00)
[2024-09-08] MEDS: Budesonide 0.5 MG/2 ML Neb Susp NEB SCH (20:52)
[2024-09-09 12:56] LABS: EOSINOPHILS ABSOLUTE AUTO 0.09 10^3/uL (0.10-0.30); EOSINOPHILS PERCENT AUTO 1.1 % (1.0-3.0); HEMATOCRIT 46.8 % (37.0-47.0); HEMOGLOBIN 14.2 g/dL (12.0-16.0); IMMATURE GRAN ABSOLUTE AUTO 0.02 10^3/uL (0.00-0.04); IMMATURE GRAN PERCENT AUTO 0.2 % (0.0-0.4); LYMPHOCYTES PERCENT AUTO 2.4 % (20.0-40.0); MEAN CORPUSCULAR HEMOGLOBIN 29.4 pg (27.0-31.0); MEAN CORPUSCULAR HGB CONC 30.3 g/dL (32.0-36.0); MEAN CORPUSCULAR VOLUME 96.9 fL (82.0-92.0); MEAN PLATELET VOLUME 9.3 fL (7.4-10.4); MONOCYTES ABSOLUTE AUTO 0.14 10^3/uL (0.10-0.80); MONOCYTES PERCENT AUTO 1.7 % (2.0-8.0); NEUTROPHILS ABSOLUTE AUTO 7.87 10^3/uL (2.50-7.00); PLATELET COUNT,PLT 183 10^3/uL (150-400); RED BLOOD CELL COUNT 4.83 10^6/uL (3.80-5.50); RED CELL DISTRIBUTION WIDTH 14.5 % (11.5-14.5); WHITE BLOOD CELL COUNT,WBC 8.32 10^3/uL (5.00-10.00)
[2024-09-09 13:12] LABS: ANION GAP 2.8 mmol/L (5-15); CALCIUM 9.5 mg/dL (8.7-10.3); CARBON DIOXIDE,CO2 44.1 mmol/L (21.0-32.0); CREATININE 1.02 mg/dL (0.51-1.17); EST CRCL DRUG DOSING (CG) 38.26 mL/min; POTASSIUM,K 4.9 mmol/L (3.5-5.1)
[2024-09-09 13:15] LABS: NEUTROPHILS PERCENT AUTO 94.6 % (50.0-70.0)
== END 2024-09-09 16:35 | DRG 189 ==
LOC: KA.ED 10:03 → KA.MS 11:39
PROVIDERS: ADMIT Internal Medicine; ATTEND Internal Medicine
PROC: 4A033R1 Measurement of Arterial Saturation, Peripheral, Percutaneous Approach (ICD-10-PCS; principal; 2024-09-02)
DX: J96.21 Acute and chronic respiratory failure with hypoxia (principal); R09.02 Hypoxemia; I12.9 Hypertensive chronic kidney disease with stage 1 through stage 4 chronic kidney disease, or unspecified chronic kidney disease; N18.9 Chronic kidney disease, unspecified; I50.33 Acute on chronic diastolic (congestive) heart failure; I26.99 Other pulmonary embolism without acute cor pulmonale; J44.1 Chronic obstructive pulmonary disease with (acute) exacerbation; J44.0 Chronic obstructive pulmonary disease with (acute) lower respiratory infection; I13.0 Hypertensive heart and chronic kidney disease with heart failure and stage 1 through stage 4 chronic kidney disease, or unspecified chronic kidney disease; J20.8 Acute bronchitis due to other specified organisms; Z66 Do not resuscitate; E78.00 Pure hypercholesterolemia, unspecified; J43.9 Emphysema, unspecified; N18.31 Chronic kidney disease, stage 3a; F41.9 Anxiety disorder, unspecified; F32.A Depression, unspecified; E66.9 Obesity, unspecified; J43.1 Panlobular emphysema; Z87.891 Personal history of nicotine dependence; Z88.0 Allergy status to penicillin; Z91.012 Allergy to eggs; Z79.51 Long term (current) use of inhaled steroids; Z79.52 Long term (current) use of systemic steroids; Z79.899 Other long term (current) drug therapy; Z68.30 Body mass index [BMI] 30.0-30.9, adult; Z98.49 Cataract extraction status, unspecified eye; Z90.49 Acquired absence of other specified parts of digestive tract; Z85.3 Personal history of malignant neoplasm of breast; Z90.10 Acquired absence of unspecified breast and nipple; Z99.81 Dependence on supplemental oxygen
CPT/HCPCS: 36415; 36600; 71045; 71046; 71260; 80048; 80053; 82803; 83605; 83880; 84145; 84484; 85025; 85027; 86140; 87070; 87205; 87486; 87581; 87633; 87798; 93005; 93010; 94640; 96361; 96374; 99223-GT; 99232-GT; 99233-GT; 99239-GT; 99284; 99285-25; A9270-GY; J1650; J1940; J1956; J2919; J3490; J7030; J7512; J7620-GY; Q3014

== ENCOUNTER 2025-01-01 15:10 | Emergency (ER) | payer MEDICARE, BC ==
[2025-01-01] MEDS ORDERED: Sodium Chloride 0.9% 10 ML Syringe FLUSH PRN (15:33)
[2025-01-01 15:45] LABS: BASOPHILS ABSOLUTE AUTO 0.01 10^3/uL (0.00-0.10); BASOPHILS PERCENT AUTO 0.1 % (0.0-1.0); EOSINOPHILS ABSOLUTE AUTO 0.23 10^3/uL (0.10-0.30); EOSINOPHILS PERCENT AUTO 3.1 % (1.0-3.0); HEMOGLOBIN 11.6 g/dL (12.0-16.0); MEAN CORPUSCULAR HEMOGLOBIN 32.2 pg (27.0-31.0); MEAN CORPUSCULAR HGB CONC 32.2 g/dL (32.0-36.0); MEAN PLATELET VOLUME 9.3 fL (7.4-10.4); MONOCYTES ABSOLUTE AUTO 0.48 10^3/uL (0.10-0.80); MONOCYTES PERCENT AUTO 6.4 % (2.0-8.0); NEUTROPHILS ABSOLUTE AUTO 5.88 10^3/uL (2.50-7.00); NEUTROPHILS PERCENT AUTO 78.4 % (50.0-70.0); PLATELET COUNT,PLT 229 10^3/uL (150-400)
[2025-01-01 16:10] LABS: ALBUMIN 2.8 g/dL (3.40-5.00); ANION GAP 9.1 mmol/L (5-15); BILIRUBIN TOTAL 0.4 mg/dL (0.2-1.0); C-REACTIVE PROTEIN 2.02 mg/dL (0.00-0.50); CALCIUM 9.5 mg/dL (8.7-10.3); CARBON DIOXIDE,CO2 40.5 mmol/L (21.0-32.0); CREATININE 2.1 mg/dL (0.51-1.17); EST CRCL DRUG DOSING (CG) 19.33 mL/min; POTASSIUM,K 3.6 mmol/L (3.5-5.1); PROTEIN TOTAL,TP 6.9 g/dL (6.4-8.2)
[2025-01-01] MEDS: Sodium Chloride 0.9% 500 ML IV SCH (16:21)
== END 2025-01-01 17:33 | disposition home or self-care (01) ==
LOC: KA.ED 15:15
DX: I13.0 Hypertensive heart and chronic kidney disease with heart failure and stage 1 through stage 4 chronic kidney disease, or unspecified chronic kidney disease (principal); I50.9 Heart failure, unspecified; J43.1 Panlobular emphysema; N18.32 Chronic kidney disease, stage 3b; D64.9 Anemia, unspecified; E66.9 Obesity, unspecified; Z88.0 Allergy status to penicillin; Z91.012 Allergy to eggs; Z79.899 Other long term (current) drug therapy; Z90.49 Acquired absence of other specified parts of digestive tract; Z68.27 Body mass index [BMI] 27.0-27.9, adult
CPT/HCPCS: 36415; 71045; 80053; 83880; 84484; 85025; 86140; 93010; 99284; J7040

== ENCOUNTER 2025-04-24 12:42 | Inpatient (IN) | payer MEDICARE, BC ==
[2025-04-24 13:12] LABS: BASOPHILS ABSOLUTE AUTO 0.02 10^3/uL (0.00-0.10); BASOPHILS PERCENT AUTO 0.2 % (0.0-1.0); EOSINOPHILS ABSOLUTE AUTO 0.01 10^3/uL (0.10-0.30); EOSINOPHILS PERCENT AUTO 0.1 % (1.0-3.0); IMMATURE GRAN ABSOLUTE AUTO 0.05 10^3/uL (0.00-0.04); IMMATURE GRAN PERCENT AUTO 0.6 % (0.0-0.4); LYMPHOCYTES ABSOLUTE AUTO 0.50 10^3/uL (1.00-4.00); LYMPHOCYTES PERCENT AUTO 5.6 % (20.0-40.0); MEAN PLATELET VOLUME 9.9 fL (7.4-10.4); MONOCYTES ABSOLUTE AUTO 0.33 10^3/uL (0.10-0.80); MONOCYTES PERCENT AUTO 3.7 % (2.0-8.0); NEUTROPHILS ABSOLUTE AUTO 7.98 10^3/uL (2.50-7.00); NEUTROPHILS PERCENT AUTO 89.8 % (50.0-70.0); PLATELET COUNT,PLT 246 10^3/uL (150-400); RED BLOOD CELL COUNT 3.36 10^6/uL (3.80-5.50); RED CELL DISTRIBUTION WIDTH 13.5 % (11.5-14.5); WHITE BLOOD CELL COUNT,WBC 8.89 10^3/uL (5.00-10.00)
[2025-04-24 13:23] LABS: ALANINE AMINOTRANSFERASE,ALT 16.0 U/L (14-63); ASPARTATE AMNIOTRANSFERASE,AST 16.0 U/L (15-37); BILIRUBIN TOTAL 0.2 mg/dL (0.2-1.0); CARBON DIOXIDE,CO2 34.9 mmol/L (21.0-32.0); CHLORIDE,CL 97.0 mmol/L (98-107); CREATININE 2.25 mg/dL (0.51-1.17); EST CRCL DRUG DOSING (CG) 17.35 mL/min; GLUCOSE RANDOM 100.0 mg/dL (70-140); POTASSIUM,K 5.3 mmol/L (3.5-5.1); PROTEIN TOTAL,TP 7.3 g/dL (6.4-8.2); SODIUM,NA 141.0 mmol/L (136-145)
[2025-04-24 13:30] LABS: BLOOD UREA NITROGEN,BUN 60.0 mg/dL (7-18); ESTIMATED GFR 21.0 mL/min (>=60)
[2025-04-24] MEDS: Levofloxacin/Dextrose 5%-Water 750 MG in Premix Bag 1 BAG IV ONE (14:24)
[2025-04-24] MEDS ORDERED: Ondansetron 4 MG Tab.DIS PO PRN (15:41)
[2025-04-24] MEDS ORDERED: Acetaminophen/HYDROcodone 325-5 MG Tab PO PRN (15:41)
[2025-04-24] MEDS ORDERED: guaiFENesin/Dextromethorphan 100-10 MG/5 ML Soln 5 ML Cup PO PRN ×2 (15:47→16:01)
[2025-04-25 07:04] LABS: BASOPHILS ABSOLUTE AUTO 0.00 10^3/uL (0.00-0.10); BASOPHILS PERCENT AUTO 0.0 % (0.0-1.0); EOSINOPHILS ABSOLUTE AUTO 0.00 10^3/uL (0.10-0.30); EOSINOPHILS PERCENT AUTO 0.0 % (1.0-3.0); IMMATURE GRAN ABSOLUTE AUTO 0.05 10^3/uL (0.00-0.04); IMMATURE GRAN PERCENT AUTO 0.5 % (0.0-0.4); LYMPHOCYTES ABSOLUTE AUTO 0.48 10^3/uL (1.00-4.00); LYMPHOCYTES PERCENT AUTO 5.2 % (20.0-40.0); MEAN PLATELET VOLUME 9.6 fL (7.4-10.4); MONOCYTES ABSOLUTE AUTO 0.63 10^3/uL (0.10-0.80); MONOCYTES PERCENT AUTO 6.8 % (2.0-8.0); NEUTROPHILS ABSOLUTE AUTO 8.11 10^3/uL (2.50-7.00); NEUTROPHILS PERCENT AUTO 87.5 % (50.0-70.0); PLATELET COUNT,PLT 174 10^3/uL (150-400); RED BLOOD CELL COUNT 2.83 10^6/uL (3.80-5.50); RED CELL DISTRIBUTION WIDTH 13.6 % (11.5-14.5); WHITE BLOOD CELL COUNT,WBC 9.27 10^3/uL (5.00-10.00)
[2025-04-25 07:20] LABS: CARBON DIOXIDE,CO2 34.1 mmol/L (21.0-32.0); CHLORIDE,CL 101.0 mmol/L (98-107); CREATININE 2.07 mg/dL (0.51-1.17); EST CRCL DRUG DOSING (CG) 19.62 mL/min; GLUCOSE RANDOM 128.0 mg/dL (70-140); POTASSIUM,K 4.6 mmol/L (3.5-5.1); SODIUM,NA 142.0 mmol/L (136-145)
[2025-04-25 07:32] LABS: BLOOD UREA NITROGEN,BUN 57.0 mg/dL (7-18); ESTIMATED GFR 23.0 mL/min (>=60)
[2025-04-25] MEDS: Omeprazole 20 MG Cap.CR PO SCH (08:34)
[2025-04-26 07:29] LABS: CARBON DIOXIDE,CO2 33.8 mmol/L (21.0-32.0); CHLORIDE,CL 104.0 mmol/L (98-107); CREATININE 2.06 mg/dL (0.51-1.17); EST CRCL DRUG DOSING (CG) 19.71 mL/min; GLUCOSE RANDOM 93.0 mg/dL (70-140); POTASSIUM,K 3.9 mmol/L (3.5-5.1); SODIUM,NA 144.0 mmol/L (136-145)
[2025-04-26 07:34] LABS: BLOOD UREA NITROGEN,BUN 60.0 mg/dL (7-18); ESTIMATED GFR 24.0 mL/min (>=60)
[2025-04-26 13:46] VITALS: BP 109/44; PULSE 110
== END 2025-04-26 14:00 | disposition home or self-care (01) | DRG 193 ==
LOC: KA.ED 12:43 → KA.MS 14:47
PROVIDERS: ADMIT Family Medicine; ATTEND Family Medicine
DX: J18.9 Pneumonia, unspecified organism (principal); I26.99 Other pulmonary embolism without acute cor pulmonale; J96.21 Acute and chronic respiratory failure with hypoxia; N17.9 Acute kidney failure, unspecified; J44.1 Chronic obstructive pulmonary disease with (acute) exacerbation; J44.0 Chronic obstructive pulmonary disease with (acute) lower respiratory infection; Z66 Do not resuscitate; I50.9 Heart failure, unspecified; E87.5 Hyperkalemia; J30.9 Allergic rhinitis, unspecified; K21.9 Gastro-esophageal reflux disease without esophagitis; N18.31 Chronic kidney disease, stage 3a; M54.9 Dorsalgia, unspecified; G89.29 Other chronic pain; J43.9 Emphysema, unspecified; F41.9 Anxiety disorder, unspecified; F32.A Depression, unspecified; E66.9 Obesity, unspecified; Z68.28 Body mass index [BMI] 28.0-28.9, adult; Z85.3 Personal history of malignant neoplasm of breast; Z88.0 Allergy status to penicillin; Z99.81 Dependence on supplemental oxygen; Z88.8 Allergy status to other drugs, medicaments and biological substances; Z91.0120 Allergy to eggs, unspecified; Z79.01 Long term (current) use of anticoagulants; Z79.899 Other long term (current) drug therapy; Z98.49 Cataract extraction status, unspecified eye; Z79.52 Long term (current) use of systemic steroids; Z90.49 Acquired absence of other specified parts of digestive tract; Z90.10 Acquired absence of unspecified breast and nipple; Z87.891 Personal history of nicotine dependence
CPT/HCPCS: 36415; 71046; 80048; 80053; 83605; 85025; 87040; 93010; 94640; 96361; 96365; 99223-GT; 99233-GT; 99239-GT; 99284; 99285-25; A9270-GY; J1956; J7030; J7512; Q3014